=== PATIENT | female | born 1965 | race Caucasian/White ===

== ENCOUNTER 2017-11-14 13:04 | Emergency (ER) | payer BC ==
[~2017-11-14] VITALS: Ht 157.5 cm; Wt 90.5 kg
[2017-11-14 13:13] VITALS: BP 149/92; PULSE 88; RESP 18; TEMP 99.3; O2SAT 98
[2017-11-14] MEDS ORDERED: SYNT175T PO (13:42)
[2017-11-14] MEDS ORDERED: LAMO200T PO (13:42)
[2017-11-14] MEDS ORDERED: CYMB30CA PO (13:42)
[2017-11-14] MEDS ORDERED: SODIUM CHLOR 0.9% 1000 ML INJ 1,000 ML IV SCH (13:57)
--- NOTE | 2017-11-14 13:57 | PD ---
HPI Chief Complaint: Abdominal Pain Time Seen by Provider: 13:52 Travel History International Travel<30 days: No Contact w/Intl Traveler<30days: No Traveled to known affect area: No History of Present Illness HPI 52-year-old female presents emergency department with about a one- week history of increased left upper quadrant pain which is dull and then sometimes sharp for the past week. Patient denies cough or shortness of breath. Patient states occasionally gets a burning type of pain. She denies injury to the area. She has history of stomach trouble in the past. She states that history of this department month ago which she describes as similar pain which lasted for 1 day, and for which he took nothing for. This is been progressively worsening over the last week. Patient is noted to have a low- grade fever of 99.3. Patient denies nausea or vomiting, but has been "burping more frequently". She states this tends to help discomfort. She denies diarrhea or urinary symptoms. Pain at rest is about a 4 out of 10, occasionally it is sharp at 8 out of 10. She has not tried taking anything for it. Movement does not seem to make it worse. She is allergic to famotidine. PFSH Past Medical History Bipolar Disorder: Yes GERD: Yes Thyroid Disease: Yes (hypo) ?: Not Past Surgical History Hysterectomy: Yes Social History Alcohol Use: No Tobacco Use: Yes Substance Use: No Allergies-Medications (Allergen,Severity, Reaction): Coded Allergies: famotidine (Verified Allergy, Severe, Numbness, 11/14/17) Reported Meds & Prescriptions Reported Meds & Active Scripts Active Prednisone 20 Mg Tab 20 Mg PO DAILY 7 Days Reported Synthroid (Levothyroxine Sodium) 175 Mcg Tab 175 Mcg PO DAILY Lamotrigine 200 Mg Tab 200 Mg PO DAILY Cymbalta DR (Duloxetine HCl) 30 Mg Capdr 90 Mg PO DAILY Review of Systems Except as stated in HPI: all other systems reviewed are Neg General / Constitutional: No: Fever, Chills Eyes: No: Visual changes HENT: No: Headaches Cardiovascular: No: Chest Pain or Discomfort Respiratory: No: Cough, Shortness of Breath, Pleuritic Pain Gastrointestinal: Positive: Abdominal Pain (See history of present illness), No : Nausea, Vomiting, Diarrhea Genitourinary: No: Dysuria Musculoskeletal: No: Pain Skin: No Rash Neurologic: No: Weakness Psychiatric: No: Depression Endocrine: No: Polydipsia Hematologic/Lymphatic: No: Easy Bruising Physical Exam Narrative GENERAL: Patient appears in mild distress per SKIN: Warm and dry. Normal color. Normal turgor. No rash appreciated. HEAD: Atraumatic. Normocephalic. EYES: Pupils equal and round. No scleral icterus. No injection or drainage. ENT: No nasal bleeding or discharge. Mucous membranes pink and moist. Pharynx is clear. Airway is patent NECK: Trachea midline. Supple and nontender. CARDIOVASCULAR: Regular rate and rhythm. No murmurs gallops or rubs RESPIRATORY: No accessory muscle use. Clear to auscultation. Breath sounds equal bilaterally. Patient has tenderness along the left anterior lower rib cage consistent with possible costochondritis. GASTROINTESTINAL: Abdomen soft, non-tender, nondistended. Pain not reproducible with palpation of the abdomen. No CVA tenderness. Hepatic and splenic margins not palpable. MUSCULOSKELETAL: Extremities without clubbing, cyanosis, or edema. No obvious deformities. NEUROLOGICAL: Awake and alert. No obvious cranial nerve deficits. Motor grossly within normal limits. Five out of 5 muscle strength in the arms and legs. Normal speech. PSYCHIATRIC: Appropriate mood and affect; insight and judgment normal. Data Data Last Documented VS Vital Signs Date Time Temp Pulse Resp B/P (MAP) Pulse Ox O2 Delivery O2 Flow Rate FiO2 11/14/17 13:13 99.3 88 18 149/92 (111) 98 Orders Orders Electrocardiogram (11/14/17 13:16) Complete Blood Count With Diff (11/14/17 13:16) Basic Metabolic Panel (Bmp) (11/14/17 13:16) Ckmb (Isoenzyme) Profile (11/14/17 13:16) Troponin I (11/14/17 13:16) Urinalysis - C+S If Indicated (11/14/17 13:16) Lipase (11/14/17 13:57) Abdomen, Flat & Upright (11/14/17 ) Ondansetron Inj (Zofran Inj) (11/14/17 14:00) Sodium Chlor 0.9% 1000 Ml Inj (Ns 1000 M (11/14/17 13:57) Sodium Chloride 0.9% Flush (Ns Flush) (11/14/17 14:00) Chest, Single Ap (11/14/17 13:57) Ketorolac Inj (Toradol Inj) (11/14/17 14:00) Al-Mag Hy-Si 40-40-4 Mg/Ml Liq (Mag-Al P (11/14/17 14:00) Lidocaine 2% Viscous (Xylocaine 2% Visco (11/14/17 14:00) Pantoprazole Inj (Protonix Inj) (11/14/17 14:00) C-Reactive Protein (Crp) (11/14/17 13:57) Westergren Sedimentation Rate (11/14/17 13:57) CKMB (11/14/17 13:50) CKMB% (11/14/17 13:50) Labs Laboratory Tests Test 11/14/17 13:50 11/14/17 14:00 White Blood Count 8.4 TH/MM3 Red Blood Count 4.29 MIL/MM3 Hemoglobin 13.3 GM/DL Hematocrit 38.2 % Mean Corpuscular Volume 89.0 FL Mean Corpuscular Hemoglobin 30.9 PG Mean Corpuscular Hemoglobin Concent 34.8 % Red Cell Distribution Width 13.5 % Platelet Count 274 TH/MM3 Mean Platelet Volume 7.6 FL Neutrophils (%) (Auto) 67.1 % Lymphocytes (%) (Auto) 25.2 % Monocytes (%) (Auto) 6.8 % Eosinophils (%) (Auto) 0.1 % Basophils (%) (Auto) 0.8 % Neutrophils # (Auto) 5.7 TH/MM3 Lymphocytes # (Auto) 2.1 TH/MM3 Monocytes # (Auto) 0.6 TH/MM3 Eosinophils # (Auto) 0.0 TH/MM3 Basophils # (Auto) 0.1 TH/MM3 CBC Comment DIFF FINAL Differential Comment Blood Urea Nitrogen 12 MG/DL Creatinine 1.16 MG/DL Random Glucose 110 MG/DL Calcium Level 9.0 MG/DL Sodium Level 139 MEQ/L Potassium Level 3.9 MEQ/L Chloride Level 106 MEQ/L Carbon Dioxide Level 26.3 MEQ/L Anion Gap 7 MEQ/L Estimat Glomerular Filtration Rate 49 ML/MIN Total Creatine Kinase 113 U/L Creatine Kinase MB 1.2 NG/ML Troponin I LESS THAN 0.02 NG/ML Urine Color YELLOW Urine Turbidity CLEAR Urine pH 6.0 Urine Specific Phelps 1.016 Urine Protein TRACE mg/dL Urine Glucose (UA) NEG mg/dL Urine Ketones NEG mg/dL Urine Occult Blood SMALL Urine Nitrite NEG Urine Bilirubin NEG Urine Urobilinogen LESS THAN 2.0 MG/DL Urine Leukocyte Esterase NEG Urine RBC 9 /hpf Urine WBC LESS THAN 1 /hpf Urine Squamous Epithelial Cells <1 /hpf Urine Hyaline Casts 1 /lpf Urine Granular Casts 1 /lpf Urine Mucus FEW /lpf Microscopic Urinalysis Comment CULT NOT INDICATED MDM Medical Decision Making Medical Screen Exam Complete: Yes Emergency Medical Condition: Yes Differential Diagnosis Atypical abdominal pain. Costochondritis. Pneumonia. Diverticulitis. Gastritis. Gallbladder disease. Pancreatitis. Narrative Course Patient is medically stable at time of exam. EKG performed in triage shows sinus rhythm with nonspecific ST changes. Labs ordered including CBC, CMP, urinalysis, and cardiac panel. Lipase, CRP, and sed rate is ordered. Chest x-ray, and abdominal upright and flat x-rays are ordered. Patient is given 1000 mL's normal saline bolus as well as 4 mg Zofran IV, and 30 mg Toradol IV. Patient is given GI cocktail. CBC is unremarkable CMP shows creatinine 1.16, GFR is 49, glucose 110, troponin is less than 0.02 everything else is negative. Urinalysis is unremarkable. Chest x-ray shows no acute process. Abdominal x-rays shows moderate stool but otherwise no acute findings. Patient feels improved after the above treatment. Patient continues to have reproducible pain in the left lower anterior thoracic wall consistent with costochondritis. Patient will be treated with prednisone 20 mg daily for the next 7 days. Patient also given omeprazole 40 mg daily #30. Patient can take Tylenol as well. Patient should use heat or ice as discussed. Patient should follow-up with her primary care physician next week to ensure improvement. Patient can return to the emergency department with worsening symptoms as needed. Diagnosis Primary Impression: Costochondritis, acute Referrals: Primary Care Physician Patient Instructions: Costochondritis (ED), General Instructions Additional Instructions: CBC is unremarkable CMP shows creatinine 1.16, GFR is 49, glucose 110, troponin is less than 0.02 everything else is negative. Urinalysis is unremarkable. Chest x-ray shows no acute process. Abdominal x-rays shows moderate stool but otherwise no acute findings. Patient feels improved after the above treatment. Patient continues to have reproducible pain in the left lower anterior thoracic wall consistent with costochondritis. Patient will be treated with prednisone 20 mg daily for the next 7 days. Patient also given omeprazole 40 mg daily #30. Patient can take Tylenol as well. Patient should use heat or ice as discussed. Patient should follow-up with her primary care physician next week to ensure improvement. Patient can return to the emergency department with worsening symptoms as needed. Med/Other Pt SpecificInfo: Prescription(s) given Scripts Prednisone (Prednisone) 20 Mg Tab 20 MG PO DAILY for 7 Days, #7 TAB 0 Refills Prov: Francois Stahl MD 11/14/17 Disposition: 01 DISCHARGE HOME Condition: Stable Bryan Schultz Nov 14, 2017 13:57
[2017-11-14] MEDS ORDERED: PANTOPRAZOLE SODIUM 40 MG VIAL IV PUSH ONE (14:00)
[2017-11-14] MEDS ORDERED: SODIUM CHLORIDE 0.9% FLUSH 10 ML FLUSH IV FLUSH PRN (14:00)
[2017-11-14] MEDS ORDERED: ONDANSETRON HCL 4 MG/2 ML VIAL IVP ONE (14:00)
[2017-11-14] MEDS ORDERED: ALUMINUM/MAGNESIUM/SIMETH 30 ML CUP PO ONE (14:00)
[2017-11-14] MEDS ORDERED: KETOROLAC TROMETHAMINE 30 MG/ML (IVP) VIAL IVP ONE (14:00)
[2017-11-14] MEDS ORDERED: LIDOCAINE VISCOUS 2% SOLN 15 ML UDC PO ONE (14:00)
[2017-11-14 14:03] LABS: AUTOMATED NEUTROPHIL # 5.7 TH/MM3 (1.8-7.7); BASOPHIL # 0.1 TH/MM3 (0-0.2); BASOPHIL % 0.8 % (0.0-2.0); EOSINOPHIL % 0.1 % (0.0-4.0); HEMATOCRIT 38.2 % (35.0-46.0); HEMOGLOBIN 13.3 GM/DL (11.6-15.3); LYMPH % 25.2 % (9.0-44.0); LYMPHOCYTE # 2.1 TH/MM3 (1.0-4.8); MEAN CORPUSCULAR HEMOGLOBIN 30.9 PG (27.0-34.0); MEAN CORPUSCULAR HGB CONC 34.8 % (32.0-36.0); MEAN PLATELET VOLUME 7.6 FL (7.0-11.0); MONO % 6.8 % (0.0-8.0); MONOCYTE # 0.6 TH/MM3 (0-0.9); NEUT % 67.1 % (16.0-70.0); PLATELET COUNT 274 TH/MM3 (150-450); RED BLOOD COUNT 4.29 MIL/MM3 (4.00-5.30); RED CELL DISTRIBUTION WIDTH 13.5 % (11.6-17.2); WHITE BLOOD COUNT 8.4 TH/MM3 (4.0-11.0)
[2017-11-14 14:27] LABS: BICARBONATE 26.3 MEQ/L (21.0-32.0); BLOOD UREA NITROGEN 12 MG/DL (7-18); CHLORIDE 106 MEQ/L (98-107); CREATININE 1.16 MG/DL (0.50-1.00); GLOMERULAR FILTRATION RATE 49 ML/MIN (>89); GLUCOSE,RANDOM 110 MG/DL (74-106); SODIUM (NA) 139 MEQ/L (136-145)
[2017-11-14 14:30] LABS: TROPONIN I LESS THAN 0.02 NG/ML (0.02-0.05)
[2017-11-14 14:50] LABS: BILIRUBIN, URINE NEG (NEG); BLOOD, URINE SMALL (NEG); GLUCOSE,URINE NEG (NEG); HYALINE CAST, URINE 1 /lpf (RARE); KETONE, URINE NEG (NEG); MUCUS URINE FEW /lpf (OCC); NITRITE,URINE NEG (NEG); SQUAMOUS EPITHELIAL CELL URINE <1 /hpf (0-5); URINE COLOR YELLOW (YELLW/STRAW); URINE LEUKOCYTE ESTERASE NEG (NEG)
--- NOTE | 2017-11-14 14:54 | RADRPT ---
EXAM DATE/TIME: 11/14/2017 14:27 [facility] COMPARISON: No previous studies available for comparison. INDICATIONS : Cough MEDICAL HISTORY : None. SURGICAL HISTORY : None. ENCOUNTER: Initial ACUITY: 3 days PAIN SCORE: 0/10 LOCATION: Bilateral chest FINDINGS: A single view of the chest demonstrates the lungs to be symmetrically aerated without evidence of mas s, infiltrate or effusion. The cardiomediastinal contours are unremarkable. Osseous structures are intact. CONCLUSION: No acute disease. Jacobo Guan MD FACR on November 14, 2017 at 14:52 Board Certified Radiologist. This report was verified electronically.
--- NOTE | 2017-11-14 14:54 | RADRPT ---
EXAM DATE/TIME: 11/14/2017 14:30 [facility] COMPARISON: No previous studies available for comparison. INDICATIONS : Stomach pain. MEDICAL HISTORY : None. SURGICAL HISTORY : Hysterectomy. ENCOUNTER: Initial ACUITY: 3 days PAIN SCORE: 4/10 LOCATION: Left abdomen FINDINGS: Supine and upright views of the abdomen were performed. The abdominal bowel gas pattern is normal. No air fluid levels are seen. No abnormal masses, calcifications, or organomegaly is seen. The visu alized lower lungs are clear. No evidence of free intraperitoneal gas. Moderate stool is evident. The osseous structures are unremarkable. CONCLUSION: Moderate stool otherwise negative Jacobo Guan MD FACR on November 14, 2017 at 14:52 Board Certified Radiologist. This report was verified electronically.
[2017-11-14] MEDS ORDERED: PRED20 PO (16:49)
[2017-11-14 22:54] LABS: C-REACTIVE PROTEIN LESS THAN 0.29 MG/DL (0.00-0.30)
--- NOTE | 2017-11-15 23:36 | EKG ---
Date Performed: 11/14/2017 Time Performed: 13:41:30 PTAGE: 52 years EKG: Sinus rhythm NONSPECIFIC ST & T-WAVE ABNORMALITY BORDERLINE ECG NO PREVIOUS TRACING DOCTOR: Cheko Fournier Interpretating Date/Time 11/15/2017 23:35:43
== END 2017-11-14 17:17 | disposition home or self-care (01) ==
LOC: NEPD 13:04
DX: M94.0 Chondrocostal junction syndrome [Tietze] (principal); E03.9 Hypothyroidism, unspecified; Z72.0 Tobacco use
CPT/HCPCS: 71045; 74019; 80048; 81001; 82550; 82552; 83690; 84484; 85025; 86140; 93005; 96374; 96375; 99285; C9113; J1885; J2405; J7030